=== PATIENT | female | born 1945 | race Two or more races ===

== ENCOUNTER 2024-08-02 23:54 | Emergency (ER) | payer OTHER ==
[~2024-08-02] VITALS: Ht 165.1 cm; Wt 60.9 kg
[2024-08-03 00:42] VITALS: BP 137/80; PULSE 101; RESP 20; TEMP 97.5; O2SAT 97
--- NOTE | 2024-08-03 01:07 | DVH ---
CT HEAD WITHOUT CONTRAST INDICATION: Headache COMPARISON: None TECHNIQUE: CT of the head without intravenous contrast. RADIATION DOSE: CTDIvol: 49.08 mGy, DLP: 983.33 mGy*cm FINDINGS: There is no evidence of intracranial hemorrhage, acute infarct, extra-axial collection, mass effect, midline shift, herniation or hydrocephalus. Chronic white matter microvascular ischemic changes. The ventricles, sulci and cisterns are normal. Visualized paranasal sinuses and mastoid air cells are cl ear. Soft tissues and osseous structures are unremarkable. IMPRESSION: No acute intracranial abnormality identified. Chronic microvascular ischemic changes.
[2024-08-03] MEDS ORDERED: ACE3T PO (01:19)
[2024-08-03] MEDS: ACETAMINOPHEN 325 MG TAB PO ONE (01:19)
--- NOTE | 2024-08-03 01:20 | ED.PDOC ---
HPI (NEURO) HPI Comments 79-year-old female presents to ER with complaints of headache x4 days. Patient reports she has been experiencing intermittent left-sided headache with radiation towards her left ear x4 days. Reports that she has been seen by two different providers with regards to her symptoms, diagnosed with influenza A along with a left ear infection and has been taking Augmentin along with Tylenol for her symptoms with slight relief. She rates her current left-sided headache pain a 10/10 with radiation towards the left ear. Patient presents to ER alert and oriented x4, with steady gait, in no distress. Denies fever, body aches, chills, nausea/vomiting, numbness/tingling, head injury/LOC, dizziness, vision changes, confusion or any further symptoms/complaints Chief Complaint: Headache Time Seen by MD: 00:18 Primary Care Provider: HARESH Pierson Notes: Nurses Notes, Medications, Allergies Information Source: Patient Mode of Arrival: Ambulatory Past Medical History PAST MEDICAL HISTORY: High Lipids Surgical History: Appendectomy REGULATORY TECHNICIAN History: No Pertinent REGULATORY TECHNICIAN History Family History Family History: Unknown Social History Lives In: Home Constitutional: denies: chills, diaphoresis, fatigue, fever, malaise, sweats, weakness, others EENTM: denies: blurred vision, double vision, ear bleeding, ear discharge, ear drainage, ear pain, ear ringing, eye pain, eye redness, hearing loss, mouth pain, mouth swelling, nasal discharge, nose bleeding, nose congestion, nose pain, photophobia, tearing, throat pain, throat swelling, voice changes, others Respiratory: denies: cough, hemoptysis, orthopnea, SOB at rest, shortness of breath, SOB with excertion, stridor, wheezing, others Cardiovascular: denies: chest pain, dizzy spells, diaphoresis, Dyspnea on exertion, edema, irregular heart beat, left arm pain, lightheadedness, palpitations, PND, syncope, others Gastrointestinal: denies: abdomen distended, abdominal pain, blood streaked bowels, constipated, diarrhea, dysphagia, difficulty swallowing, hematemesis, melena, nausea, poor appetite, poor fluid intake, rectal bleeding, rectal pain, vomiting, others Genitourinary: denies: abnormal vagina bleeding, burning, dyspareunia, dysuria, flank pain, frequency, hematuria, incontinence, pain, , vagina discharge, urgency, others Neurological: reports: others (As stated in HPI) Musculoskeletal: denies: back pain, gout, joint pain, joint swelling, muscle pain, muscle stiffness, neck pain, others Integumetry: denies: bruises, change in color, change in hair/nails, dryness, laceration, lesions, lumps, rash, wounds, others Allergic/Immunocompromised: denies: Difficulty Healing, Frequent Infections, Hives, Itching, others Hematologic/Lymphatic: denies: anemia, blood clots, easy bleeding, easy bruising, swollen glands, others Endocrine: denies: excessive hunger, excessive sweating, excessive thirst, excessive urination, flushing, intolerance to cold, intolerance to heat, unexplained weight gain, unexplained weight loss, others Psychiatric: denies: anxiety, bipolar disorder, depression, hopeless, panic disorder, schizophrenia, sleepless, suicidal, others Physical Exam General Appearance: No Apparent Distress HEENT: Normal ENT Inspection, PERRL/EOMI, Pharynx Normal, TMs Normal Neck: Full Range of Motion, Non-Tender, Normal Respiratory: Chest Non-Tender, Lungs Clear, No Accessory Muscle Use, No Respiratory Distress, Normal Breath Sounds Cardiovascular: No Murmur, No Gallop, Regular Rate/Rhythm Breast Exam: Deferred Gastrointestinal: NOT DONE Genitalia: Deferred Pelvic: Deferred Rectal: Deferred Extremities: Normal capillary refill, Normal range of motion Neurologic: Alert, cover creaser II-XII nml as Tested, No Motor Deficits, Normal Affect, Normal Mood, No Sensory Deficits Cerebellar Function: Normal Reflexes: Normal Skin: Dry, Normal Color, Warm Peripheral Pulses: 2+ Radial (R), 2+ Radial (L), 2+ Brachial (R), 2+ Brachial (L) Lymphatic: No Adenopathy Was a procedure done? Was a procedure done?: No Sedation Sedation?: No Differential Diagnosis (SZ) Headache: Cluster, Subarachnoid Hemorrhage, Subdural Hemorrhage, Mass Lesion, Trigeminal Neuralgia X-Ray, Labs, Meds, VS Vital Signs Date Time Temp Pulse Resp B/P (MAP) Pulse Ox O2 Delivery O2 Flow Rate FiO2 08/03/24 00:42 97.5 101 20 137/80 (99) 97 97.5 08/03/24 00:15 97.5 101 20 137/80 (99) 97 97.5 Current Medications Medications (Trade) Dose Ordered Sig/Archie Route Start Time Stop Time Status Last Admin Acetaminophen (Tylenol Tablet) 650 mg ONCE ONCE PO 08/03/24 01:30 08/03/24 01:31 08/03/24 01:19 PATIENT: BARBARA PAVONCCT: [id number]: [id number] : 1945 LOC: ER ROOM / BED: / AGE / SEX: 79 / F ADM STATUS: REG ER SERVICE ORDERING PHYSICIAN: DOLORES HARRIS PROCEDURE(s): HWOCT - HEAD WITHOUT CONTRAST REASON: Headache ORDER NUMBER(s): [id number], ACCESSION NUMBER(s): [id number] CT HEAD WITHOUT CONTRAST INDICATION: Headache COMPARISON: None TECHNIQUE: CT of the head without intravenous contrast. RADIATION DOSE: CTDIvol: 49.08 mGy, DLP: 983.33 mGy*cm FINDINGS: There is no evidence of intracranial hemorrhage, acute infarct, extra-axial collection, mass effect, midline shift, herniation or hydrocephalus. Chronic white matter microvascular ischemic changes. The ventricles, sulci and cisterns are normal. Visualized paranasal sinuses and mastoid air cells are clear. Soft tissues and osseous structures are unremarkable. IMPRESSION: No acute intracranial abnormality identified. Chronic microvascular ischemic changes. ATED BY: PHILLIP ROSALES MD DICTATED DATE/TIME: 08/03/24104 SIGNED BY: PHILLIP ROSALES MD SIGNED DATE/TIME: 08/03/24104 CC: CT head without contrast reviewed Tylenol 650 mg p.o. ordered Patient had improvement in symptoms and in no distress prior to discharge Advised to drink plenty of fluids Advised to follow up with PCP in 1-2 days Patient alert and oriented x4 prior to discharge. Patient verbalized understanding and agreeable with current plan of care Advised to return to ER immediately if symptoms worsen Images Reviewed?: Images reviewed and evaluated by me Time of 1ST Reevaluation: 00:54 Reevaluation 1ST: N/A Patient Education/Counseling: Diagnosis, Treatment, Prognosis, Need For Follow Up Family Education/Counseling: No Family Present Departure 1 Departure Time of Disposition: 01:12 Impression: Primary Impression: Migraine headache without aura Qualified Codes: G43.001 - Migraine without aura, not intractable, with status migrainosus Disposition: 01 HOME / SELF CARE / HOMELESS Condition: Stable e-Prescriptions Hydrocodone-Acetaminophen (Hydrocodone Bitartrate/AC 5-325 mg) 1 Tab Tab 1 TAB PO Q6HPRN, #6 TAB 0 Refills Prov: DOLORES HARRIS 08/03/24 Discharged With: Self Critical Care Note Critical Care Time?: No Stability Stability form required: No Heart Score Heart Score: Heart Score Response (Comments) Value History N/A 0 EKG N/A 0 Age N/A 0 Risk Factors N/A 0 Troponin N/A 0 Total 0 DOLORES HARRIS Aug 03, 2024 01:20
[2024-08-03] MEDS ORDERED: HYDR-4902 PO (01:27)
== END 2024-08-03 01:28 | disposition home or self-care (01) ==
LOC: ER 23:54
DX: G43.001 Migraine without aura, not intractable, with status migrainosus (principal); E78.5 Hyperlipidemia, unspecified; Z90.49 Acquired absence of other specified parts of digestive tract; Z79.2 Long term (current) use of antibiotics
CPT/HCPCS: 70450